=== PATIENT | male | born 1985 | race Caucasian/White ===

== ENCOUNTER 2016-12-02 08:57 | Inpatient (IN) | payer BC ==
[~2016-12-02] VITALS: Ht 182.9 cm; Wt 88.5 kg
[2016-12-02 09:46] LABS: BASOPHIL % 0.3 % (0-2); PLATELET COUNT 164 x10^3mcL (130-400); RED CELL DISTRIBUTION WIDTH 13.1 % (11.5-14.5)
[2016-12-02 09:53] LABS: CALCIUM 8.7 mg/dL (8.5-10.1); CARBON DIOXIDE 30.2 mmol/L (21-32); CHLORIDE SERUM 102 mmol/L (98-107); CREATININE SERUM 1.2 mg/dL (0.7-1.3); GFR1 > 60 mL/min; GLUCOSE SERUM 109 mg/dL (74-106); POTASSIUM SERUM 3.9 mmol/L (3.5-5.1); SODIUM SERUM 141 mmol/L (136-145)
[2016-12-02 09:59] LABS: ALBUMIN 4.2 g/dL (3.4-5.0); ALKALINE PHOSPHATASE 61 U/L (46-116); ALT/SGPT 23 U/L (16-63); AST/SGOT 14 U/L (15-37); BILIRUBIN TOTAL 2.5 mg/dL (0.20-1.00); TOTAL PROTEIN, SERUM 6.8 g/dL (6.4-8.2); URIC ACID 7.8 mg/dL (3.5-7.2)
[2016-12-02 10:50] LABS: microscopic required? NO
[2016-12-02 11:24] LABS: urine erythrocyte NEGATIVE (NEGATIVE)
[2016-12-02] MEDS ORDERED: IBUPROFEN400 MG PO (11:42)
[2016-12-02] MEDS ORDERED: TRAZODONE50 M1 (11:42)
[2016-12-02] MEDS ORDERED: CYCLOBENZAPRINE5 MG (11:42)
[2016-12-02 13:27] LABS: PHOSPHOROUS 3.1 mg/dL (2.5-4.9)
[2016-12-02 13:50] LABS: T3 TOTAL 0.91 ng/mL
[2016-12-02 14:05] LABS: FREE T4 1.22 ng/dL (0.76-1.46); FREE THYROXINE INDEX 3.2 ug/dL (1.4-4.5); T4(THYROXINE) 8.3 ug/dL (4.7-13.3)
[2016-12-02 14:49] LABS: MAGNESIUM 1.9 mg/dL (1.8-2.4)
[2016-12-02 14:50] LABS: CHOLESTEROL/HDL RATIO 2.9
[2016-12-02 14:51] VITALS: BP 142/72
[2016-12-02 19:55] VITALS: BP 118/68
[2016-12-03 00:31] LABS: AMPHETAMINE QUAL UR NONE DETECTED (NEG <=1000)
[2016-12-03 05:36] LABS: BASOPHIL % 0.3 % (0-2); PLATELET COUNT 155 x10^3mcL (130-400); RED CELL DISTRIBUTION WIDTH 13.2 % (11.5-14.5)
[2016-12-03 05:38] VITALS: BP 109/59
[2016-12-03 05:51] LABS: CALCIUM 8.2 mg/dL (8.5-10.1); CARBON DIOXIDE 30.7 mmol/L (21-32); CHLORIDE SERUM 106 mmol/L (98-107); CREATININE SERUM 1.1 mg/dL (0.7-1.3); GFR1 > 60 mL/min; GLUCOSE SERUM 92 mg/dL (74-106); MAGNESIUM 2.4 mg/dL (1.8-2.4); PHOSPHOROUS 5.7 mg/dL (2.5-4.9); POTASSIUM SERUM 3.9 mmol/L (3.5-5.1); SODIUM SERUM 143 mmol/L (136-145)
[2016-12-03 09:24] VITALS: BP 122/69
[2016-12-03 13:20] VITALS: BP 130/77
[2016-12-03] MEDS ORDERED: NOR10T PO (15:56)
[2016-12-03] MEDS ORDERED: ALLOPURINOL100 MG PO (15:57)
[2016-12-03] MEDS ORDERED: MOT800 PO (15:57)
[2016-12-03] MEDS ORDERED: COLACE100 MG PO (15:57)
[2016-12-03 16:40] VITALS: BP 130/77
== END 2016-12-03 17:24 | disposition home or self-care (01) | DRG 694 ==
LOC: ED 08:57 → DU 12:22
PROVIDERS: Emergency Medicine; ADMIT Family Medicine
DX: N20.0 Calculus of kidney (principal); Z87.442 Personal history of urinary calculi; E78.5 Hyperlipidemia, unspecified; E79.0 Hyperuricemia without signs of inflammatory arthritis and tophaceous disease; T14.8 Other injury of unspecified body region; X58.XXXA Exposure to other specified factors, initial encounter; Y93.89 Activity, other specified; Y92.89 Other specified places as the place of occurrence of the external cause; Y99.8 Other external cause status; Z83.3 Family history of diabetes mellitus; Z82.49 Family history of ischemic heart disease and other diseases of the circulatory system
CPT/HCPCS: 80307; 84439; J1885; J2270; J2405; J7030; Q0092